=== PATIENT | male | born 1965 | race Caucasian/White ===

== ENCOUNTER → 2021-12-12 09:59 | Outpatient (BNVA) | payer OTHER, SELFPAY | PROVIDERS: PCP Internal Medicine; Visit Provider Internal Medicine | DX: S60.212A Contusion of left wrist, initial encounter (principal); W24.0XXA Contact with lifting devices, not elsewhere classified, initial encounter | CPT/HCPCS: 99203 ==

== ENCOUNTER → 2022-01-02 11:06 | Outpatient (BNVA) | payer OTHER, SELFPAY | PROVIDERS: PCP Internal Medicine; Visit Provider Physician Assistant Medical | DX: S60.212D Contusion of left wrist, subsequent encounter (principal); W24.0XXD Contact with lifting devices, not elsewhere classified, subsequent encounter; M65.4 Radial styloid tenosynovitis [de Quervain] | CPT/HCPCS: 29125; 99213 ==

== ENCOUNTER → 2022-01-30 10:23 | Outpatient (BNVA) | payer OTHER, SELFPAY | PROVIDERS: PCP Internal Medicine; Visit Provider Physician Assistant Medical | DX: S60.212D Contusion of left wrist, subsequent encounter (principal); W24.0XXD Contact with lifting devices, not elsewhere classified, subsequent encounter; M65.4 Radial styloid tenosynovitis [de Quervain] | CPT/HCPCS: 99213 ==

== ENCOUNTER 2022-02-11 09:30 | Outpatient (RCR) | payer OTHER, SELFPAY ==
--- NOTE | 2022-01-03 16:21 | MHC.OT.OEV ---
[address] [phone] F: [phone] Occupational Therapy Evaluation Diagnosis: Left Dequervains tenosynovitis Date of Onset: 12/12/21 Date of Surgery: Attending Provider: Cindy Brown Prescribed Treatment: Eval and treat Follow Up Appointment: History of Current Condition: Pt reports a left wrist injury maneuvering a pallet adilia. Pain not improved . 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 Walks ,Cruise Living Situation, Family and/or Social Support: Current Level of Function and Occupation Self Care, Employment, Leisure: Right dominant .. pain with pulling on socks, zipping pants, ..cutting food with fork and knife Sleep: Wakes with pain. Improved with new radial gutter splint Driving: Minimal use of left Vision: Balance: Pain Assessment Pain Score: 3 Pain Scale Used: Numeric (0 - 10) Pain Location and Description: 3 left radial wrist Aggravating Factors: Wrist and thumb motion. tapping wrist Alleviating Factors: Radial gutter splint Skin and Soft Tissue Assessment Skin and Soft Tissue: Comments: WNL . Very mild distal radius edema Nerve assessment Ulnar Nerve: Median Nerve: Radial Nerve: Comments: Sensory Assessment Temperature: Light Touch: WNL Proprioception: Vibration: Comments: Edema Assessment Upper Extremity: WNL Lower Extremity: Comments: Dexterity Assessment Dexterity: WFL Comments: Pain with tying shoe, zipper..holding fork to stabilize food to cut.. Special Tests Comments: Pos Finkelsteins AROM(PROM) Strength Cervical Cervical Flexion: Cervical Extension: Cervical Lateral Flexion: Cervical Rotation: Comments: Shoulder Flexion: Extension: Abduction: Internal Rotation: External Rotation: Comments: Flexion: Extension: Abduction: Internal Rotation: External Rotation: Comments: Elbow Flexion: Extension: Pronation: Supination: Comments: Flexion: Extension: Pronation: Supination: Comments: Wrist Flexion: R 65 L 65 Extension: R 65 L 55 Ulnar Deviation: R 30 L 10 Radial Deviation: R 15 L 10 Comments: Pain on left Flexion: Extension: Ulnar Deviation: Radial Deviation: Comments: Thumb Thumb CMC Flexion: Thumb MCP Flexion: Thumb IP Flexion: Radial Abduction: Palmar Abduction: [place] ([place] 0-10): 5 Comments: Pain with thumb add, op Digits Index MCP: PIP: DIP: Long MCP: PIP: DIP: Ring MCP: PIP: DIP: Small MCP: PIP: DIP: Comments: WNL Gross Grasp: R 140 lb L 50 lb Lateral Pinch: R 30 lb L 9 lb Two-Point Pinch: Three-Jaw Jose Enrique: Comments: Patient Education Primary Language: Mongolian 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 Patient demonstrates Patient verbalizes Barriers to Learning: None Readiness for Learning: Accepting Who was educated? Patient Comments: Pt reports he will be on a 2 wk vacation starting the week of the Plan of Care Assessment: Pt is a 56 yo male with a dx of traumatic Dequervains tenosynovitis due to an injury pulling a pallet adilia at work He reports a significant improvement in pain wearing the radial gutter splint Cindy May from [facility] issued yesterday. Today he presents with significant impairments in wrist and thumb ROM, strength and left hand function due to pain. He will benefit from OT to help calm down sx and progress ROM and function He will be available for OT for one week, then on vacation for 2 wks. 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
--- NOTE | 2022-01-03 16:21 | MHC.OT.EP ---
[address] [phone] Occupational Therapy Plan of Care Date of Evaluation: 01/03/22 Diagnosis: Left Dequervains tenosynovitis Assessment: Pt is a 56 yo male with a dx of traumatic Dequervains tenosynovitis due to an injury pulling a pallet adilia at work He reports a significant improvement in pain wearing the radial gutter splint Cindy August from the [facility] issued yesterday. Today he presents with significant impairments in wrist and thumb ROM, strength and left hand function due to pain. He will benefit from OT to help calm down sx and progress ROM and function He will be available for OT for one week, then on vacation for 2 wks. 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 Thank you once again for your referral.
--- NOTE | 2022-02-11 10:20 | MHC.OT.OP ---
[address] [phone] F: [phone] Occupational Therapy Progress Note Diagnosis: Left Dequervains tenosynovitis Date of Surgery: Date of Evaluation: 01/03/22 Treatments to Date: 4 Cancellations to Date: No Shows to Date: Subjective: It feels the same.. I'm careful with it Pt reports not wearing the radial gutter splint Lapse in treatment due to pt 2 wks cruise and therapist illness Pain Score: 3 Pain Location: Left radial wrist Objective Measures: Status: Assessment: Pt reports con't high pain with gripping , lifting activities with his left non dominant hand. 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 75 lb from 50 lb (right 130 lb) Lat pinch 20lb from 9 lb QD 20 pts from 54 pts Short Term Goals: Indep in ther ex for left wrist and hand ROM and tendon glide MET Demo indep in pain management MET Demo awareness of jt protection with daily activities MET Motorcycle Maker Goals: Left wrist ext to 65 deg MET Left wrist ulnar dev to >20 deg MET Thumb op to small finger proximal crease MET Left veterinary practitioner to> 70 lb MET Left lat pinch > 15 lb MET Quick DASH > 30 pts MET Frequency and Duration: The patient will be seen 2x wk x 2wks Treatment Plan: Therapeutic Exercise Home Exercise Program Patient Education Pt on vacation 01/13/22-01/27/22 Electronically Signed By: Grisel Arellano OT CHT CLT Reviewed/agree with student documentation: N/A Therapist:
--- NOTE | 2022-02-13 09:50 | MHC.OT.DC ---
[address] [phone] F: [phone] Occupational Therapy Discharge Note Provider: Pretty Brown Diagnosis: Left Dequervains tenosynovitis Date of Surgery: Date of Evaluation: 01/03/22 Date of Discharge: 02/11/22 Treatments to Date: 4 Cancellations to Date: No Shows to Date: Discharge Status: Patient Elected to Stop Discharge Summary: Pt self d/c due to getting and injection and not feeling the need for OT Electronically Signed By: Grisel Arellano OT CHT CLT Reviewed/agree with student documentation: N/A Therapist: Please Sign and return to therapist, thank you for your referral.
== END 2022-04-02 15:35 | disposition home or self-care (01) ==
LOC: HO.OT 09:30
PROVIDERS: PCP Internal Medicine; Visit Provider Physician Assistant Medical
DX: M65.4 Radial styloid tenosynovitis [de Quervain] (principal)
CPT/HCPCS: 97033; 97110; 97165

== ENCOUNTER → 2022-02-11 13:21 | Outpatient (BNVA) | payer OTHER, SELFPAY | PROVIDERS: PCP Nurse Practitioner Family; Visit Provider Orthopaedic Surgery | DX: M65.4 Radial styloid tenosynovitis [de Quervain] (principal) | CPT/HCPCS: 99202; J1100 ==

== ENCOUNTER 2022-02-14 08:25 | Outpatient (REF) | payer BC, OTHER, SELFPAY ==
[2022-02-14 11:20] LABS: MANUAL DIFF FLAG NO
[2022-02-14 11:21] LABS: Appearance Urine Clear; Color Urine Yellow; Glucose Urine UA Negative (Negative); Leukocyte Esterase Urine Negative (Negative); Nitrite Urine Negative (Negative); PH 5.5 (5.0-9.0); Specific Gravity - Urine 1.015 (1.005-1.025); Urine Blood Negative (Negative); Urine Ketones Negative (Negative); Urine Protein Negative (Neg-Trace)
[2022-02-14 11:40] LABS: Basophils Absolute Auto 0.1 X10*3/uL (0.0-0.2); Basophils Percent Auto 0.8 % (0-2); Eosinophils Absolute Auto 0.2 X10*3/uL (0.0-0.4); Eosinophils Percent Auto 3.8 % (0-4); Hematocrit 44.9 % (42.0-52.0); Hemoglobin 14.7 g/dl (14.0-18.0); Imm Gran Abs Auto 0.04 X10*3/uL (0.00-0.03); Imm Gran Pct Auto 0.7 % (0.0-0.4); Lymphocytes Absolute Auto 1.9 X10*3/uL (1.2-4.9); Mean Corpuscular HGB Conc 32.7 g/dl (31.0-36.0); Mean Corpuscular Hemoglobin 29.8 pg (27.0-33.0); Mean Corpuscular Volume 91.1 fL (80.0-98.0); Mean Platelet Volume 9.1 fL (9.4-12.4); Monocytes Absolute Auto 0.9 X10*3/uL (0.1-1.2); Monocytes Percent Auto 14.8 % (2-11); Neutrophils Percent Auto 48.9 % (45-73); Platelet Count 299 X10*3/uL (160-400); Red Blood Count 4.93 X10*6/uL (4.60-5.80); Red Cell Distribution Width 12.3 % (11.0-16.0); White Blood Count 6.1 X10*3/uL (4.8-10.8)
[2022-02-14 12:00] LABS: Alanine Aminotransferase 45 U/L (0-40); Albumin Level 4.2 g/dL (3.5-5.0); Alkaline Phosphatase 68 U/L (39-117); Anion Gap 14 (12-20); Aspartate Amino Transferase 26 U/L (5-37); Bilirubin Total 0.5 mg/dL (0.0-1.0); Blood Urea Nitrogen 15 mg/dL (9-16); Calcium 8.8 mg/dL (8.4-10.2); Carbon Dioxide 28 mmol/L (22-29); Chloride 104 mmol/L (96-108); Cholesterol 204 mg/dL; Estimated Glomerular Filt Rate > 60; Glucose Fasting 96 mg/dL (60-99); HDL Cholesterol 38 mg/dL; LDL Cholesterol Calculated 132 mg/dl; Potassium 4.3 mmol/L (3.3-5.1); Sodium 142 mmol/L (135-145); Triglycerides 172 mg/dL
[2022-02-14 12:22] LABS: Prostate Specific Antigen Scr 1.13 ng/mL (<0.05-4.0); TSH reflex Free T4 1.77 uIU/mL (0.32-4.0)
== END 2022-02-14 08:26 | disposition home or self-care (01) ==
LOC: HO.HMGCLDS 08:25
PROVIDERS: PCP Nurse Practitioner Family; Visit Provider Nurse Practitioner Family
DX: Z00.00 Encounter for general adult medical examination without abnormal findings (principal); Z12.5 Encounter for screening for malignant neoplasm of prostate
CPT/HCPCS: 36415; 80053; 80061; 81003; 84153; 84443; 85025

== ENCOUNTER 2023-02-17 07:57 | Outpatient (AMB) | payer BC, SELFPAY ==
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
[2023-02-17 08:01] VITALS: BP 120/78; PULSE 80; O2SAT 95; BMI 36.8
== END 2023-02-17 09:01 | disposition home or self-care (01) ==
PROVIDERS: Visit Provider Nurse Practitioner Family
DX: Z00.00 Encounter for general adult medical examination without abnormal findings (principal); Z12.5 Encounter for screening for malignant neoplasm of prostate; Z23 Encounter for immunization
CPT/HCPCS: 90471; 90686; 99396

== ENCOUNTER 2023-02-17 08:49 | Outpatient (REF) | payer BC, OTHER, SELFPAY ==
[2023-02-17 11:24] LABS: Appearance Urine Clear; Color Urine Yellow; Glucose Urine UA Negative (Negative); Leukocyte Esterase Urine Negative (Negative); Nitrite Urine Negative (Negative); Urine Blood Negative (Negative); Urine Ketones Negative (Negative); Urine Protein Negative (Neg-Trace)
[2023-02-17 11:27] LABS: MANUAL DIFF FLAG NO
[2023-02-17 11:40] LABS: Basophils Absolute Auto 0.1 X10*3/uL (0.0-0.2); Basophils Percent Auto 0.9 % (0-2); Eosinophils Absolute Auto 0.2 X10*3/uL (0.0-0.4); Eosinophils Percent Auto 2.9 % (0-4); Hematocrit 46.4 % (42.0-52.0); Hemoglobin 15.3 g/dl (14.0-18.0); Imm Gran Abs Auto 0.03 X10*3/uL (0.00-0.03); Imm Gran Pct Auto 0.5 % (0.0-0.4); Lymphocytes Absolute Auto 1.3 X10*3/uL (1.2-4.9); Lymphocytes Percent Auto 23.2 % (20-40); Mean Corpuscular Hemoglobin 30.4 pg (27.0-33.0); Mean Corpuscular Volume 92.2 fL (80.0-98.0); Mean Platelet Volume 8.8 fL (9.4-12.4); Monocytes Absolute Auto 0.6 X10*3/uL (0.1-1.2); Monocytes Percent Auto 10.7 % (2-11); Neutrophils Absolute Auto 3.5 x10*3/uL (2.0-8.3); Neutrophils Percent Auto 61.8 % (45-73); Platelet Count 313 X10*3/uL (160-400); Red Blood Count 5.03 X10*6/uL (4.60-5.80); Red Cell Distribution Width 12.8 % (11.0-16.0); White Blood Count 5.6 X10*3/uL (4.8-10.8)
[2023-02-17 12:18] LABS: Alanine Aminotransferase 34 U/L (0-40); Albumin Level 4.4 g/dL (3.5-5.0); Alkaline Phosphatase 76 U/L (39-117); Anion Gap 14 (12-20); Aspartate Amino Transferase 22 U/L (5-37); Bilirubin Total 0.5 mg/dL (0.0-1.0); Blood Urea Nitrogen 14 mg/dL (9-16); Calcium 9.8 mg/dL (8.4-10.2); Carbon Dioxide 26 mmol/L (22-29); Chloride 106 mmol/L (96-108); Cholesterol 218 mg/dL (<200); Estimated Glomerular Filt Rate > 60; Glucose Fasting 108 mg/dL (60-99); HDL Cholesterol 40 mg/dL (>40); LDL Cholesterol Calculated 138 mg/dL (<100); Potassium 4.4 mmol/L (3.3-5.1); Sodium 142 mmol/L (135-145); Triglycerides 201 mg/dL (<150)
[2023-02-17 12:19] LABS: Prostate Specific Antigen Scr 0.97 ng/mL (<0.05-4.0)
[2023-02-17 12:23] LABS: TSH reflex Free T4 1.17 uIU/mL (0.32-4.0)
== END 2023-02-17 08:50 | disposition home or self-care (01) ==
LOC: HO.HMGCLDS 08:49
PROVIDERS: PCP Nurse Practitioner Family; Visit Provider Nurse Practitioner Family
DX: Z00.00 Encounter for general adult medical examination without abnormal findings (principal); Z12.5 Encounter for screening for malignant neoplasm of prostate; E78.5 Hyperlipidemia, unspecified; Z13.29 Encounter for screening for other suspected endocrine disorder; Z13.0 Encounter for screening for diseases of the blood and blood-forming organs and certain disorders involving the immune mechanism
CPT/HCPCS: 36415; 80053; 80061; 81003; 84153; 84443; 85025

== ENCOUNTER 2024-07-28 12:57 | Outpatient (AMB) | payer BC, SELFPAY ==
[2024-07-28 13:00] VITALS: BP 136/80; PULSE 80; O2SAT 98; BMI 38.0
--- NOTE | 2024-07-28 13:00 | A.OFFPC_ITS ---
Vital Signs 07/28/24 13:00 Height 5 ft 10 in Weight 265 lb BMI 38.0 BP 136/80 Blood Pressure Location Lt brachial Position Sitting Pulse 80 Pulse Source Pulse Oximeter Pulse Oximetry (%) 98 Oxygen Delivery Method Room Air Intake Visit Reasons: AnnualPE w/ labs Environmental Services Tech Required: No Accompanied by: Self / Same As Patient Allergies SEASONAL ALLERGIES Allergy (Mild, Uncoded 07/28/24 13:00) ITCHY EYES Medication List - Last Reconciled 07/28/24 by NICOLAS Osuna atorvastatin 20 mg PO BEDTIME Tobacco use date assessed: 07/28/24 Dental Screening Dental Screen Date: 07/28/24 Did you have a dental visit in the last 12 months?: Yes Did you have a dental problem in the last 6 months where you did not have access to dental care?: No Was dental information given to patient?: Patient has dentist HPI AnnualPE w/ labs HPI0 Details History of Present Illness The patient is a 58-year-old male presenting for a routine physical examination. He has no complaints and is described as being in a positive emotional state. His medical history indicates that he is adherent to regular dermatological assessments due to significant sun exposure following his relocation to [place] after [place]. The necessity of continued dermatological care was reinforced during this visit, primarily due to the increased sun exposure. Additionally, a colorectal cancer screening is due, prompting a discussion of its importance. The patient is aware of the need for scheduling this appointment with a pattern storage clerk. He expressly denies various symptoms, including chest pain, respiratory difficulties, abdominal or bowel discomfort, and changes in stool characteristics. Health Maintenance - Encouraged continuation of regular mayo matological examinations due to increased sun exposure. - Discussed the need for colorectal canc er screening and emphasized its scheduling. - Ordered PSA test to be conducted along side fasting laboratory work. Social History - Patient is retired. - Resides primarily in [place], resultin g in increased sun exposure. Review of Systems - Cardiovascular: Denies chest pain, dys pnea. - Gastrointestinal: Denies abdominal jayjay n, melena, constipation, diarrhea, abnormal stool patterns. denies any fevers, chills, N/V -does get weaker stream at night only ( urinates average 1 time at night) Physical Exam General: Cooperative, healthy appearing, comfortable, no acute distress and well developed, obese Orientation: Patient oriented x3 Limitations: No limitations Head: Normal to inspection Ears: Hearing grossly normal bilaterally Nose: Normal external nose present Face and sinus: Normal facial exam Eyes: Appearance normal, both eyes and all related structures Neck: Normal visual inspection and Yes full ROM Respiratory: Normal respiratory effort and able to speak in complete sentences. Clear to auscultation bilaterally Cardiovascular: Regular rate and rhythm. Normal S1 and S2 GI: Normal to inspection. Soft to palpation and nontender. Digital rectal exam today, difficult to palpate prostate, did not feel enlarged. Skin: No rashes or lesions noted Neuro: Patient oriented x3 Extremities: Normal to inspection Results Plan This visit centered on health maintenance. I emphasized the importance of continuing regular dermatological evaluations in light of the patient?s increased sun exposure from residing in [place]. I reiterated the need for scheduling a colorectal cancer screening due to its due status. A digital rectal examination was conducted, revealing no prostate enlargement (though difficult to palpate), and a PSA test was ordered to perform with upcoming fasting lab work to monitor prostate health. Discussion Notes I discussed with the patient the importance of regular skin examinations due to increased sun exposure and emphasized the significance of maintaining this preventative measure. We also covered the need for timely colorectal cancer screening and I encouraged the patient to arrange this with a gastroenterolog ist. The benefits of early detection and screening were outlined, with an understanding that these preventative strategies are crucial for long-term health. The digital rectal exam findings were shared, and the ordering of a PSA test was explained to monitor prostate health comprehensively. Patient Instructions - Continue regular visits with a dermato logist. - Schedule and attend a colorectal cance r screening with a pattern storage clerk. - Get PSA test done with upcoming fastin g lab tests. - Maintain awareness of any new symptoms and report them promptly. 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 1. Little interest or pleasure in doing things: not at all 2. Feeling down, depressed, or hopeless: not at all 3. Trouble falling or staying asleep, or sleeping too much: not at all 4. Feeling tired or having little energy: not at all 5. Poor appetite or overeating: not at all 6. Feeling bad about yourself - or that you are a failure or have let yourself or your family down: not at all 7. Trouble concentrating on things, such as reading the newspaper or watching television: not at all 8. Moving or speaking so slowly that other people could have noticed. Or the opposite - being so fidgety or restless that you have been moving around a lot more than usual: not at all 9. Thoughts that you would be better off or of hurting yourself in some way: not at all Total score: 0 Depression Screening Interpretation: Negative Depression Screening Done: Yes 24936 - PHQ-9 Billing: Yes Source: Developed by Drs. Blake Phillips, Yanique Franks, David Montemayor and colleagues, with an educational randy from better.. Thrive Questionnaire Date Thrive assessed: 07/28/24 I am a: Patient What is your living situation today?: I have a steady place to live Within the past 12 months, did the food you bought not last and you didn't have the money to get more?: Never true Within the past 12 months, did you worry whether your food would run out before you got money to buy more?: Never true Do you have trouble paying for medicines?: No Do you have trouble getting transportation to medical appointments?: No Do you have trouble paying your heating and electricity bill?: No Do you have trouble taking care of your child, family member or friend?: No Do you have trouble with day-to-day activities such as bathing, preparing meals, shopping, managing finances, etc.?: No Are you currently unemployed and looking for a job?: No Are you interested in more education?: No Please select the resources that you would like help with: None Currently or been in a relationship where the following occur: No concerns reported THRIVE Score: 0 AUDIT C Alcohol Use Questionnaire (AUDIT-C) 1. How often do you have a drink containing alcohol?: Monthly or less 2. How many drinks containing alcohol do you have on a typical day when you are drinking?: 1 or 2 3. How often do you have six or more drinks on one occasion?: Never Total Score: 1 Score Reviewed/Action Taken: Yes STEWART-7 AMB Questionnaire STEWART-7 Date STEWART - 7 assessed: 07/28/24 Feeling nervous, anxious, or on edge: 0 = Not at all Not being able to stop or control worryin = Not at all Worrying too much about different things: 0 = Not at all Trouble relaxin = Not at all Being so restless that it is hard to sit still: 0 = Not at all Becoming easily annoyed or irritable: 0 = Not at all Feeling afraid as if something awful might happen: 0 = Not at all Total STEWART-7 score (0-4 normal; 5-9 mild; 10-14 moderate; 15-21 severe): 0 Source: Developed by Drs. Blake Phillips, Yanique Franks, David Montemayor and colleagues, with an educational randy from better.. STEWART-7 Assessment Billing STEWART-7 Assessment Tool: STEWART-7 Assessment 65517 Physical exam (Primary Care) Vital Signs: Last Vital Signs Pulse 80 07/28/24 13:00 BP 136/80 07/28/24 13:00 Pulse Ox 98 07/28/24 13:00 Oxygen Delivery Method Room Air 07/28/24 13:00 BMI result Body Mass Index 38.0 Tobacco/Smoking Status: Tobacco use Status Tobacco use date assessed 07/28/24 07/28/24 13:01 Patient Tobacco Use Status Never used Tobacco 07/28/24 13:01 e-Cigarette/Vaping Use Never Used 07/28/24 13:01 PHQ-9: PHQ-9 Score PHQ-9: Total score 0 07/28/24 13:05 Depression Screening Interpretation: Negative Thrive Assessment: Date of Thrive Assessment Date Thrive assessed 07/28/24 07/28/24 13:01 Currently or been in a relationship where the following occur: No concerns reported Coding Level of Care Code Est Pt Prev Care 40-64y(20613) Diagnoses Physical exam Z00.00 Screening for prostate cancer Z12.5 Additional Codes STEWART-7 Assessment Billing - STEWART-7 Assessment Tool: STEWART-7 Assessment 67675 ([id number]) PHQ-9 - 01818 - PHQ-9 Billing: Yes ([id number]) Assessment & Plan Assessment & Plan (1) Physical exam: Code(s): Z00.00 - Encounter for general adult medical examination without abnormal findings Category: Medical (2) Screening for prostate cancer: Code(s): Z12.5 - Encounter for screening for malignant neoplasm of prostate Category: Medical Plan . Orders: Orders TSH reflex Free T4 Today Z00.00 - Encounter for general adult medical examinat ion without abnormal findings UA CC w/rflx Micro + Cult Today Z00.00 - Encounter for general adult medical examination without abnormal findings Prostate Specific Antigen Scr Today Z12.5 - Encounter for screening for malignant neoplasm of prostate Complete Blood Count Auto Diff Today Z00.00 - Encounter for general adult medical examination without abnormal findings Comprehensive [place]. Panel Fast Today Z00.00 - Encounter for general adult medical examination without abnormal findings Lipid Panel Today Z00.00 - Encounter for general adult medical examination without abnormal findings
== END 2024-07-28 13:51 | disposition home or self-care (01) ==
LOC: HO.HMCC 12:58
PROVIDERS: PCP Nurse Practitioner Family; Visit Provider Nurse Practitioner Family
DX: Z00.00 Encounter for general adult medical examination without abnormal findings (principal); Z12.5 Encounter for screening for malignant neoplasm of prostate

== ENCOUNTER → 2024-07-28 12:57 | Outpatient (BNVA) | payer BC, SELFPAY | PROVIDERS: PCP Nurse Practitioner Family; Visit Provider Nurse Practitioner Family | DX: Z00.00 Encounter for general adult medical examination without abnormal findings (principal) | CPT/HCPCS: 96127 ==

== ENCOUNTER 2024-08-01 08:54 | Outpatient (REF) | payer BC, SELFPAY ==
[2024-08-01 10:16] LABS: Appearance Urine Clear; Color Urine Yellow; Glucose Urine UA Negative (Negative); Leukocyte Esterase Urine Negative (Negative); Nitrite Urine Negative (Negative); PH 5.5 (5.0-9.0); Specific Gravity - Urine 1.025 (1.005-1.025); Urine Blood Negative (Negative); Urine Ketones Negative (Negative); Urine Protein Negative (Neg-Trace)
[2024-08-01 10:28] LABS: MANUAL DIFF FLAG NO
[2024-08-01 10:44] LABS: Basophils Absolute Auto 0.1 X10*3/uL (0.0-0.2); Basophils Percent Auto 1.1 % (0-2); Eosinophils Absolute Auto 0.3 X10*3/uL (0.0-0.4); Eosinophils Percent Auto 4.7 % (0-4); Hematocrit 45.1 % (42.0-52.0); Hemoglobin 15.3 g/dl (14.0-18.0); Imm Gran Abs Auto 0.01 X10*3/uL (0.00-0.03); Imm Gran Pct Auto 0.2 % (0.0-0.4); Lymphocytes Absolute Auto 1.6 X10*3/uL (1.2-4.9); Lymphocytes Percent Auto 29.2 % (20-40); Mean Corpuscular HGB Conc 33.9 g/dl (31.0-36.0); Mean Corpuscular Hemoglobin 30.7 pg (27.0-33.0); Mean Corpuscular Volume 90.6 fL (80.0-98.0); Monocytes Absolute Auto 0.6 X10*3/uL (0.1-1.2); Monocytes Percent Auto 11.7 % (2-11); Neutrophils Absolute Auto 2.9 x10*3/uL (2.0-8.3); Neutrophils Percent Auto 53.1 % (45-73); Platelet Count 253 X10*3/uL (160-400); Red Blood Count 4.98 X10*6/uL (4.60-5.80); Red Cell Distribution Width 12.5 % (11.0-16.0); White Blood Count 5.4 X10*3/uL (4.8-10.8)
[2024-08-01 11:59] LABS: Prostate Specific Antigen Scr 0.67 ng/mL (<0.05-4.0)
[2024-08-01 13:00] LABS: Alanine Aminotransferase 44 U/L (0-40); Anion Gap 14 (12-20); Aspartate Amino Transferase 33 U/L (5-37); Bilirubin Total 0.6 mg/dL (0.0-1.0); Blood Urea Nitrogen 12 mg/dL (9-16); Calcium 9.1 mg/dL (8.4-10.2); Carbon Dioxide 27 mmol/L (22-29); Chloride 105 mmol/L (96-108); Cholesterol 185 mg/dL (<200); Estimated Glomerular Filt Rate > 60; Glucose Fasting 115 mg/dL (60-99); HDL Cholesterol 36 mg/dL (>40); LDL Cholesterol Calculated 120 mg/dL (<100); Sodium 142 mmol/L (135-145); TSH reflex Free T4 1.12 uIU/mL (0.32-4.0); Total Protein 7.4 g/dL (6.5-8.0); Triglycerides 148 mg/dL (<150)
[2024-08-01 13:53] LABS: Alkaline Phosphatase 71 U/L (39-117)
== END 2024-08-01 08:55 | disposition home or self-care (01) ==
LOC: HO.HMGCLDS 08:54
PROVIDERS: PCP Nurse Practitioner Family; Visit Provider Nurse Practitioner Family
DX: Z12.5 Encounter for screening for malignant neoplasm of prostate (principal); Z00.00 Encounter for general adult medical examination without abnormal findings
CPT/HCPCS: 36415; 80053; 80061; 81003; 84153; 84443; 85025